=== PATIENT | female | born 1950 | race Caucasian/White ===

== ENCOUNTER 2020-04-21 10:45 | Inpatient (IN) | payer MEDICARE, OTHER ==
[2020-04-21 11:37] LABS: #Basophils 0.2 thou/uL (0.0-0.2); #Lymphocytes 0.2 thou/uL (1.20-3.40); #Monocytes 0.4 thou/uL (0.11-0.59); #Neutrophils 8.2 thou/uL (1.40-6.50); %Basophils 2.1 % (0.0-1.0); %Eosinophils 0.5 % (0.0-10.0); %Lymphocytes 2.5 % (21.0-51.0); %Monocytes 4.2 % (0.0-10.0); %Neutrophils 90.7 % (42.0-75.0); Hemoglobin 13.8 g/dL (12.0-16.0); Mean Corpuscular HGB CONC 32.8 g/dL (32.0-36.0); Mean Corpuscular Hemoglobin 30.6 pg (27.0-31.0); Mean Corpuscular Volume 93.2 fL (78.0-98.0); Mean Platelet Volume 5.9 fL (7.4-10.4); Platelet Count 243 thou/uL (130-400); RBC Distribution Width 11.3 % (11.5-14.5); Red Blood Cell (RBC) Count 4.51 mill/uL (4.20-5.40)
[2020-04-21] MEDS ORDERED: diphenhydrAMINE 50 MG CAP PO PRN (11:41)
[2020-04-21] MEDS ORDERED: Promethazine HCl 25 MG/ML VIAL IM PRN (11:41)
[2020-04-21] MEDS ORDERED: Docusate 100 MG CAP PO PRN (11:41)
[2020-04-21] MEDS ORDERED: Promethazine 25 MG TAB PO PRN (11:41)
[2020-04-21 11:43] LABS: PTT 24.5 sec (22.9-36.1); Prothrombin Time 12.9 sec (12.0-14.7)
[2020-04-21] MEDS ORDERED: Acetaminophen 650 MG Suppository PR PRN (11:48)
[2020-04-21 11:52] LABS: ALT (SGPT) 14 U/L (8-55); AST (SGOT) 15 U/L (5-34); Albumin 4.1 g/dL (3.4-4.8); Alkaline Phosphatase 77 U/L (40-110); Anion Gap 16 mmol/L (10-20); BUN (Urea Nitrogen) 25 mg/dL (9.8-20.1); Bilirubin, Total 0.4 mg/dL (0.2-1.2); Calc. Creatinine Clearance 0 mL/min (70-130); Calcium 9.1 mg/dL (7.8-10.44); Carbon Dioxide 23 mmol/L (23-31); Chloride 106 mmol/L (98-107); Globulin 2.8 g/dL (2.4-3.5); Glucose 122 mg/dL (83-110); Potassium 3.6 mmol/L (3.5-5.1); Protein, Total 6.9 g/dL (5.8-8.1); Sodium 141 mmol/L (136-145)
[2020-04-21] MEDS ORDERED: levETIRAcetam 500 MG TAB PO SCH (12:00)
[2020-04-21] MEDS ORDERED: Lorazepam 1 MG TAB ONE (12:37)
[2020-04-21] MEDS ORDERED: Magnevist 469MG/ML 20 ML VIAL ONE (13:47)
[2020-04-21] MEDS ORDERED: Dexamethasone 4 MG TAB ONE (15:20)
[2020-04-21] MEDS: Sodium Chloride 0.9% 1,000 ML IV SCH (15:35)
[2020-04-21] MEDS: Dexamethasone 4 MG TAB PO SCH ×3 (15:35→23:36)
[2020-04-21 15:40] LABS: SARS-CoV-2 NAA Rapid Test Not Detected (NotDetected)
[2020-04-21 18:04] VITALS: BMI 21.1
[2020-04-21] MEDS ORDERED: Diazepam 10 MG/2 ML SYRINGE IVP PRN (19:54)
[2020-04-21] MEDS: levETIRAcetam 500 MG TAB PO SCH (20:40)
[2020-04-22] MEDS: Sodium Chloride 0.9% 1,000 ML IV SCH ×2 (04:30→06:01)
[2020-04-22] MEDS: Dexamethasone 4 MG TAB PO SCH ×3 (06:06→17:54)
[2020-04-22] MEDS: levETIRAcetam 500 MG TAB PO SCH ×2 (07:39→20:11)
[2020-04-22] MEDS ORDERED: Bacitracin Zinc Ointment 30 gm TUBE ONE (09:04)
[2020-04-22] MEDS ORDERED: Glycopyrrolate 0.2 MG/ML 5 ML SYRINGE ONE (09:35)
[2020-04-22] MEDS ORDERED: Lidocaine 1% PF 5 ML VIAL ONE ×2 (09:35)
[2020-04-22] MEDS ORDERED: Rocuronium Bromide 10 MG/ML (10ML VIAL) ONE (09:35)
[2020-04-22] MEDS ORDERED: PHENYLEPHRINE-NS 100 MCG/ML 10 ML SYRINGE ONE (09:35)
[2020-04-22] MEDS ORDERED: Ondansetron PF 4 MG/2 ML Vial ONE (09:35)
[2020-04-22] MEDS ORDERED: ePHEDrine 50 MG/ML VIAL ONE (09:35)
[2020-04-22] MEDS ORDERED: Dexamethasone 20 MG/5 ML VIAL ONE (09:35)
[2020-04-22] MEDS ORDERED: PROPOFOL 200 MG/20 ML VIAL ONE (09:35)
[2020-04-22] MEDS ORDERED: Fentanyl 250 MCG/5 ML VIAL ONE (09:52)
[2020-04-22] MEDS ORDERED: Thrombin 5000 UNITS/5 ML VIAL ONE (10:02)
[2020-04-22] MEDS ORDERED: Mannitol 12.5 GM/50 ML ONE (10:04)
[2020-04-22] MEDS ORDERED: Fentanyl 100 MCG/2 ML VIAL ONE ×2 (12:31→13:35)
[2020-04-22] MEDS ORDERED: SUGAMMADEX SODIUM 200 MG/2 ML VIAL ONE (12:51)
[2020-04-22] MEDS ORDERED: Ondansetron HCl/PF 4 MG/2 ML Vial IVP PRN (13:30)
[2020-04-22] MEDS ORDERED: Promethazine HCl 25 MG/ML VIAL SLOW IVP PRN (13:30)
[2020-04-22] MEDS ORDERED: Promethazine HCl 25 MG/ML VIAL IM PRN (13:30)
[2020-04-22] MEDS ORDERED: Meperidine HCl/PF 25 MG/ML VIAL SLOW IVP PRN (13:30)
[2020-04-22] MEDS ORDERED: Promethazine HCl 25 MG/ML VIAL ONE (14:27)
[2020-04-22] MEDS ORDERED: traMADol HCl 50 MG TAB PO PRN (15:28)
[2020-04-22] MEDS: CEFAZOLIN 2 GM in Premix Bag 1 BAG IVPB SCH (16:42)
[2020-04-22] MEDS ORDERED: Morphine 2 MG/ML VIAL ONE ×3 (17:24→20:57)
[2020-04-22] MEDS: Morphine 2 MG/ML VIAL SLOW IVP PRN ×3 (17:25→20:58)
[2020-04-22] MEDS ORDERED: HYDROcodone/Acetaminophen 7.5/325 mg Tablet ONE (17:35)
[2020-04-22] MEDS: HYDROcodone/Acetaminophen 7.5/325 mg Tablet PO PRN (17:54)
[2020-04-22] MEDS ORDERED: Sodium Chloride 0.9% 10 ML ONE (21:00)
[2020-04-23] MEDS ORDERED: Morphine 2 MG/ML VIAL ONE ×3 (01:25→12:02)
[2020-04-23] MEDS: Morphine 2 MG/ML VIAL SLOW IVP PRN ×4 (01:28→23:46)
[2020-04-23] MEDS: Dexamethasone 4 MG TAB PO SCH ×5 (01:51→23:46)
[2020-04-23] MEDS: CEFAZOLIN 2 GM in Premix Bag 1 BAG IVPB SCH ×3 (02:17→18:04)
[2020-04-23] MEDS ORDERED: HYDROcodone/Acetaminophen 7.5/325 mg Tablet ONE (03:04)
[2020-04-23] MEDS: HYDROcodone/Acetaminophen 7.5/325 mg Tablet PO PRN ×3 (03:08→19:52)
[2020-04-23] MEDS ORDERED: diphenhydrAMINE 25 MG CAP ONE (03:44)
[2020-04-23] MEDS ORDERED: Amiodarone 150 MG/3 ML VIAL ONE (05:53)
[2020-04-23] MEDS ORDERED: Diltiazem HCl 125 MG, Admixture Fee 1 EACH in Sodium Chloride 0.9% 100 ML IVPB SCH ×2 (06:15→16:30)
[2020-04-23 06:20] LABS: PTT 23.5 sec (22.9-36.1); Prothrombin Time 13.7 sec (12.0-14.7)
[2020-04-23 06:26] LABS: ALT (SGPT) 12 U/L (8-55); AST (SGOT) 11 U/L (5-34); Albumin 3.8 g/dL (3.4-4.8); Alkaline Phosphatase 66 U/L (40-110); Anion Gap 14 mmol/L (10-20); BUN (Urea Nitrogen) 12 mg/dL (9.8-20.1); Bilirubin, Total 0.3 mg/dL (0.2-1.2); Calc. Creatinine Clearance 62 mL/min (70-130); Calcium 8.8 mg/dL (7.8-10.44); Carbon Dioxide 26 mmol/L (23-31); Chloride 105 mmol/L (98-107); Globulin 2.4 g/dL (2.4-3.5); Glucose 149 mg/dL (83-110); Magnesium 1.7 mg/dL (1.6-2.6); Phosphorus 3.6 mg/dL (2.3-4.7); Potassium 3.8 mmol/L (3.5-5.1); Protein, Total 6.2 g/dL (5.8-8.1); Sodium 141 mmol/L (136-145)
[2020-04-23 06:28] LABS: Hemoglobin 12.6 g/dL (12.0-16.0); Mean Corpuscular HGB CONC 32.1 g/dL (32.0-36.0); Mean Corpuscular Volume 93.3 fL (78.0-98.0); Mean Platelet Volume 5.7 fL (7.4-10.4); Platelet Count 291 thou/uL (130-400); RBC Distribution Width 11.3 % (11.5-14.5)
[2020-04-23 07:38] LABS: Band 8 % (5-11); Lymphocytes 10 % (21-51); MDiff Complete? YES; Monocytes 6 % (0-10); Neutrophil 76 % (42-75); White Blood Cell (WBC) Count 18.9 thou/uL (4.8-10.8)
[2020-04-23] MEDS: levETIRAcetam 500 MG TAB PO SCH ×2 (10:42→20:00)
[2020-04-23] MEDS: Sodium Chloride 0.9% 1,000 ML IV SCH ×2 (12:47→18:03)
[2020-04-23] MEDS ORDERED: Iopamidol 370 76% 50 ML VIAL FS ONE (13:09)
[2020-04-23 14:13] LABS: #Lymphocytes 0.4 thou/uL (1.20-3.40); #Monocytes 0.7 thou/uL (0.11-0.59); #Neutrophils 13.3 thou/uL (1.40-6.50); %Eosinophils 0.1 % (0.0-10.0); %Lymphocytes 2.9 % (21.0-51.0); %Monocytes 4.9 % (0.0-10.0); %Neutrophils 92.2 % (42.0-75.0); Hemoglobin 13.2 g/dL (12.0-16.0); Mean Corpuscular HGB CONC 33.8 g/dL (32.0-36.0); Mean Corpuscular Hemoglobin 31.4 pg (27.0-31.0); Mean Platelet Volume 5.8 fL (7.4-10.4); Platelet Count 227 thou/uL (130-400); RBC Distribution Width 11.4 % (11.5-14.5); Red Blood Cell (RBC) Count 4.21 mill/uL (4.20-5.40); White Blood Cell (WBC) Count 14.5 thou/uL (4.8-10.8)
[2020-04-23] MEDS ORDERED: Iopamidol-370 76% 500 ML 1 ML ONE (14:30)
[2020-04-23 14:35] LABS: ALT (SGPT) 12 U/L (8-55); AST (SGOT) 13 U/L (5-34); Albumin 4.1 g/dL (3.4-4.8); Alkaline Phosphatase 73 U/L (40-110); Anion Gap 13 mmol/L (10-20); BUN (Urea Nitrogen) 11 mg/dL (9.8-20.1); Bilirubin, Total 0.4 mg/dL (0.2-1.2); Calc. Creatinine Clearance 62 mL/min (70-130); Calcium 9.2 mg/dL (7.8-10.44); Carbon Dioxide 28 mmol/L (23-31); Chloride 104 mmol/L (98-107); Globulin 2.7 g/dL (2.4-3.5); Glucose 156 mg/dL (83-110); Potassium 3.6 mmol/L (3.5-5.1); Protein, Total 6.8 g/dL (5.8-8.1); Sodium 141 mmol/L (136-145)
[2020-04-23 14:54] LABS: Free T4 (Free Thyroxine) 1.27 ng/dL (0.70-1.48); Thyroid Stimulating Hormone 0.3104 uIU/mL (0.35-4.94)
[2020-04-23] MEDS: Amiodarone 450 MG in Dextrose 5% in Water 250 ML IVPB SCH (19:24)
[2020-04-24] MEDS ORDERED: Fentanyl 100 MCG/2 ML VIAL SLOW IVP PRN (00:24)
[2020-04-24] MEDS ORDERED: Diazepam 5 MG TAB PO SCH (00:45)
[2020-04-24] MEDS: CEFAZOLIN 2 GM in Premix Bag 1 BAG IVPB SCH ×3 (02:11→17:41)
[2020-04-24] MEDS: Dexamethasone 4 MG TAB PO SCH (06:15)
[2020-04-24] MEDS: Sodium Chloride 0.9% 1,000 ML IV SCH ×2 (06:16→21:51)
[2020-04-24] MEDS ORDERED: Ondansetron PF 4 MG/2 ML Vial IVP PRN (08:05)
[2020-04-24] MEDS: HYDROcodone/Acetaminophen 7.5/325 mg Tablet PO PRN ×2 (08:29→15:12)
[2020-04-24] MEDS: levETIRAcetam 500 MG TAB PO SCH ×2 (08:30→21:52)
[2020-04-24] MEDS: Amiodarone 450 MG in Dextrose 5% in Water 250 ML IVPB SCH (11:21)
[2020-04-24] MEDS ORDERED: Dexamethasone 4 MG TAB PO SCH (12:00)
[2020-04-24] MEDS: Dexamethasone 1 MG TAB PO SCH ×2 (12:36→17:41)
[2020-04-24] MEDS: Morphine 2 MG/ML VIAL SLOW IVP PRN (21:54)
[2020-04-25] MEDS: Dexamethasone 1 MG TAB PO SCH ×4 (01:47→19:14)
[2020-04-25] MEDS: CEFAZOLIN 2 GM in Premix Bag 1 BAG IVPB SCH (01:47)
[2020-04-25] MEDS: levETIRAcetam 500 MG TAB PO SCH ×2 (08:59→20:35)
[2020-04-25] MEDS: Amiodarone 200 MG TAB PO SCH ×2 (08:59→20:34)
[2020-04-25] MEDS: Morphine 2 MG/ML VIAL SLOW IVP PRN (09:05)
[2020-04-25] MEDS: Sodium Chloride 0.9% 1,000 ML IV SCH (09:19)
[2020-04-25 20:27] VITALS: BP 105/55; TEMP 98.5
[2020-04-26] MEDS ORDERED: Dexamethasone 1 MG TAB PO SCH ×2 (12:00)
[2020-04-28] MEDS ORDERED: Dexamethasone 1 MG TAB PO SCH ×2 (12:00)
[2020-04-30] MEDS ORDERED: Dexamethasone 1 MG TAB PO SCH (12:00)
== END 2020-04-25 21:30 | DRG 25 ==
LOC: ERS 10:45 → ERHOLD 11:42 → SURG A 17:50 → CCU 04-22 09:27 → PACU-TCU 04-22 16:20 → 2NO 04-23 13:25
PROVIDERS: ADMIT Neurological Surgery; ATTEND Internal Medicine
PROC: 00B70ZZ Excision of Cerebral Hemisphere, Open Approach (ICD-10-PCS; principal; 2020-04-22)
PROC: 06H03DZ Insertion of Intraluminal Device into Inferior Vena Cava, Percutaneous Approach (ICD-10-PCS; 2020-04-23)
PROC: B54CZZA Ultrasonography of Left Lower Extremity Veins, Guidance (ICD-10-PCS; 2020-04-23)
DX: C71.2 Malignant neoplasm of temporal lobe (principal); G93.6 Cerebral edema; I26.99 Other pulmonary embolism without acute cor pulmonale; G81.94 Hemiplegia, unspecified affecting left nondominant side; I47.1 Supraventricular tachycardia; I48.91 Unspecified atrial fibrillation; Z20.822 Contact with and (suspected) exposure to COVID-19; E03.9 Hypothyroidism, unspecified; Z90.710 Acquired absence of both cervix and uterus; Z98.890 Other specified postprocedural states; Z79.899 Other long term (current) drug therapy
CPT/HCPCS: 0240U; 36415; 36416; 37191; 70450; 70553; 71045; 71275; 76942; 80053; 81002; 83735; 83880; 84100; 84439; 84443; 84484; 85025; 85610; 85730; 88307; 88331; 88341; 88342; 88360; 93005; 93010; 93306; 93970; 99285; A9579; C1713; J0282; J0690; J1100; J1165; J1642; J1644; J1956; J2150; J2270; J2405; J2550; J2704; J3010; J3490; J7070; J8540; Q0163; Q9967

== ENCOUNTER 2020-05-08 14:13 | Emergency (ER) | payer MEDICARE, OTHER, SELFPAY ==
[2020-05-08] MEDS ORDERED: Acetaminophen 325 MG TAB ONE (16:08)
[2020-05-08] MEDS ORDERED: Boostrix 0.5 ML (Tdap) VIAL ONE (16:08)
--- NOTE | 2020-05-08 16:08 | CT ---
EXAM: BRAIN CT WITHOUT IV CONTRAST: History: Pain, Unwitnessed fall, recent surgery. Comparison: 04-23-2020 FINDINGS: Right craniotomy change. The previously noted extensive frontal pneumocephalus has resolved. The post operative acute hemorrhagic changes in the right operative bed region have markedly improved to reso lved. There is some persistent mass effect and abnormal attenuation within the right occipital and po sterior temporal lobes. Some of this appears to be encephalomalacia and other low density appears to be more likely edema. There is approximately 0.5 cm of midline shift to the left which is stable when compared to the 04-13-2020 study. 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 There is no evidence for acute hyperdense hemorrhage. IMPRESSION: 1. 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 2. Stable 0.5 cm midline shift to the left. 3. Extensive post operative changes in the right temporal and parietal lobes with some encephalo malacia change and some persistent edema. 4. No evidence for acute hyperdense hemorrhage. Recent post op craniotomy changes. 5. Resolution of a previously noted extensive pneumocephalus. POS: RRE
--- NOTE | 2020-05-08 16:11 | CT ---
FACIAL BONE CT SCAN WITHOUT IV CONTRAST: History: Injury, woke on the floor, laceration left orbital region and eyebrow. FINDINGS: There is evidence for laceration over the left supraorbital region as well as some minimal soft tissu e swelling over the left infraorbital region and left cheek. Small amount of dependent fluid in the r ight maxillary sinus. Zygomatic arches appear intact. The orbits appear intact. Nasal bone is unremar kable. The mandible is intact. Mastoids appear clear. IMPRESSION: Minimal soft tissue changes involving the left supraorbital and left infraorbital regions. Small amou nt of fluid in the right maxillary sinus. No evidence for acute facial bone fracture. POS: RRE
== END 2020-05-08 18:48 ==
LOC: ERS 14:13
DX: S01.112A Laceration without foreign body of left eyelid and periocular area, initial encounter (principal); S80.212A Abrasion, left knee, initial encounter; Z23 Encounter for immunization; W06.XXXA Fall from bed, initial encounter
CPT/HCPCS: 12013; 70450; 70486; 90471; 90715